=== PATIENT | male | born 1985 | race African-American/Black ===

== ENCOUNTER 2018-11-28 10:49 | Emergency (ER) | payer OTHER ==
[~2018-11-28] VITALS: Ht 170.2 cm; Wt 104.3 kg
[2018-11-28 10:49] VITALS: TEMP 97.2
[2018-11-28 11:34] LABS: PLATELET COUNT 219 K/uL (142-355)
[2018-11-28 11:50] LABS: POTASSIUM 3.8 mmol/L (3.6-5.2); SODIUM 140 mmol/L (136-145)
[2018-11-28 12:54] VITALS: BP 120/75
== END 2018-11-28 12:54 | disposition home or self-care (01) ==
LOC: ED 10:49
PROVIDERS: Family Medicine
DX: F41.9 Anxiety disorder, unspecified (principal); R07.89 Other chest pain; R06.4 Hyperventilation; R00.1 Bradycardia, unspecified
CPT/HCPCS: 36415; 80053; 80307; 81000; 82550; 82553; 84484; 85027; 85379; 93005; 99283